=== PATIENT | male | born 1950 | race Caucasian/White ===

== ENCOUNTER 2018-03-09 19:32 | Inpatient (IN) | payer MEDICARE, MEDICAID ==
[~2018-03-09] VITALS: Ht 180.3 cm; Wt 76.6 kg
[~2018-03-09 19:32] MED LIST: BENZ2TAB10 PO; DIVA500T52 PO; FISH1CAP49 PO; LISI-661 PO; OLAN10TA22 PO; OMEP20 PO; RISP2TAB76 PO
[2018-03-09 20:28] LABS: BASOPHILS % (AUTO) 0.5 % (0.0-2.0); EOSINOPHILS % (AUTO) 3.5 % (1.0-6.0); HEMATOCRIT 40.9 % (41-53); HEMOGLOBIN 14.3 g/dL (13.5-17.5); LYMPHOCYTES # (AUTO) 2.6 K/uL (1.0-4.8); LYMPHOCYTES % (AUTO) 33.1 % (22.0-44.0); MEAN CORPUSCULAR HEMOGLOBIN 34.3 pg (26.0-34.0); MEAN CORPUSCULAR HGB CONC 34.9 G/dL (31.0-37.0); MEAN CORPUSCULAR VOLUME 98 fL (80-100); MONOCYTES # (AUTO) 0.8 K/uL (0.1-1.0); MONOCYTES % (AUTO) 10.7 % (2.0-9.0); NEUTROPHILS # (AUTO) 4.1 K/uL (1.8-7.7); NEUTROPHILS % (AUTO) 52.2 % (40.0-70.0); PLATELET COUNT (AUTO) 218 K/uL (150-450); RED BLOOD CELL COUNT(AUTO) 4.16 MIL/uL (4.50-5.90); RED CELL DISTRIBUTION WIDTH 13.5 % (11.5-14.5)
[2018-03-09 20:37] LABS: ANION GAP 8 mmol/L (8-16); CARBON DIOXIDE 29 mmol/L (22-29); CHLORIDE 104 mmol/L (98-107); CREATININE 1.17 mg/dL (0.60-1.30); GLOMERULAR FILTR. RATE CALC > 60 mL/min (>60); POTASSIUM 3.8 mmol/L (3.5-5.1); SODIUM SERUM 141 mmol/L (136-145); UREA NITROGEN, BLOOD 33 mg/dL (7-18)
[2018-03-09 20:39] LABS: GLUCOSE,POINT OF CARE 198 MG/DL (70-110)
[2018-03-09 20:44] LABS: ALANINE AMINOTRANSFERASE 16 U/L (12-78); ALBUMIN 3.5 g/dL (3.4-5.0); ALKALINE PHOSPHATASE 54 U/L (46-116); ASPARTATE AMINOTRANSFERASE 12 U/L (15-37); BILIRUBIN,TOTAL 0.5 mg/dL (0.1-1.0); TOTAL PROTEIN, SERUM 7.1 g/dL (6.4-8.2); VALPROIC ACID 23 mcg/mL (50-100)
[2018-03-09 20:49] LABS: GLUCOSE,RANDOM 182 mg/dL (70-110)
[2018-03-09] MEDS ORDERED: HALOPERIDOL 5 MG TABLET PO PRN (21:15)
[2018-03-09] MEDS ORDERED: AmLODIPine BESYLATE 5 MG TABLET PO ONE (21:15)
[2018-03-09] MEDS ORDERED: ZOLPIDEM TARTRATE 10 MG TABLET PO PRN (21:15)
[2018-03-09 21:36] LABS: HEMOGLOBIN A1C 5.6 % (4.5-6.2)
[2018-03-09 21:47] LABS: CHOL/HDL RATIO 4.3 (4.2-7.3); CHOLESTEROL 165 mg/dL (131-200); FREE T4 (FREE THYROXINE) 0.84 ng/dL (0.76-1.46); HDL CHOLESTEROL 38 mg/dL (40-60); LDL CHOL (CALC.) 91 mg/dL (0-130); THYROID STIMULATING HORMONE 1.41 uIU/mL (0.36-3.74); TRIGLYCERIDES 181 mg/dL (15-150)
[2018-03-09] MEDS: LORazepam 2 MG TABLET PO PRN (21:58)
[2018-03-10 01:10] VITALS: BP 137/87
[2018-03-10 10:15] VITALS: BP 136/92
[2018-03-10 21:50] VITALS: BP 138/79
[2018-03-10] MEDS ORDERED: ALBUTEROL SULFATE HFA 90 MCG/PUFF 8 GM INHALER IH PRN (22:15)
[2018-03-10] MEDS ORDERED: BENZOCAINE/MENTHOL LOZENGE MM PRN (22:15)
[2018-03-10] MEDS ORDERED: MAG HYDROX/AL HYDROX/SIMETH ES 30 ML SUSPENSION UDCUP PO PRN (22:15)
[2018-03-10] MEDS ORDERED: PETROLATUM,WHITE 71 GM JELLY TP PRN (22:15)
[2018-03-10] MEDS ORDERED: ACETAMINOPHEN 325 MG TABLET PO PRN (22:15)
[2018-03-10] MEDS ORDERED: BACITRACIN 28.4 GM OINTMENT TP PRN (22:15)
[2018-03-10] MEDS ORDERED: ONDANSETRON HCL 4 MG TABLET PO PRN (22:15)
[2018-03-10] MEDS ORDERED: LOPERAMIDE HCL 2 MG CAPSULE PO PRN (22:15)
[2018-03-10] MEDS ORDERED: MAGNESIUM HYDROXIDE SUSPENSION 30 ML UDCUP PO PRN (22:15)
[2018-03-10] MEDS ORDERED: CloNIDine HCL 0.1 MG TABLET PO PRN (22:15)
[2018-03-10] MEDS ORDERED: IBUPROFEN 600 MG TABLET PO PRN (22:15)
[2018-03-10] MEDS ORDERED: DEXTROSE 50%-WATER 25 GM/50 ML SYRINGE IVP PRN (23:00)
[2018-03-11] MEDS ORDERED: PNEUMOCOCCAL VACCINE POLYVALENT 0.5 ML VIAL [PPSV23] IM ONE (01:15)
[2018-03-11 06:24] LABS: GLUCOMETER DEV NAME(LOC) 3EI C; GLUCOSE,POINT OF CARE 96 MG/DL (70-110)
[2018-03-11 06:29] LABS: BAND NEUTROPHILS % (MANUAL) 0 % (0-5)
[2018-03-11 06:51] LABS: HEMATOCRIT 39.3 % (41-53); HEMOGLOBIN 13.6 g/dL (13.5-17.5); MEAN CORPUSCULAR HGB CONC 34.7 G/dL (31.0-37.0); MEAN CORPUSCULAR VOLUME 98 fL (80-100); PLATELET COUNT (AUTO) 226 K/uL (150-450); RED BLOOD CELL COUNT(AUTO) 4.01 MIL/uL (4.50-5.90); RED CELL DISTRIBUTION WIDTH 13.4 % (11.5-14.5)
[2018-03-11 07:14] LABS: ANION GAP 7 mmol/L (8-16); CALCIUM, TOTAL 8.8 mg/dL (8.8-10.5); CARBON DIOXIDE 27 mmol/L (22-29); CHLORIDE 104 mmol/L (98-107); CHOL/HDL RATIO 3.9 (4.2-7.3); CHOLESTEROL 155 mg/dL (131-200); CREATININE 0.91 mg/dL (0.60-1.30); GLOMERULAR FILTR. RATE CALC > 60 mL/min (>60); GLUCOSE,RANDOM 106 mg/dL (70-110); HDL CHOLESTEROL 40 mg/dL (40-60); LDL CHOL (CALC.) 87 mg/dL (0-130); PHOSPHORUS 3.5 mg/dL (2.5-4.9); SODIUM SERUM 138 mmol/L (136-145); THYROID STIMULATING HORMONE 4.97 uIU/mL (0.36-3.74); TRIGLYCERIDES 139 mg/dL (15-150); UREA NITROGEN, BLOOD 27 mg/dL (7-18)
[2018-03-11 07:26] LABS: HEMOGLOBIN A1C 5.7 % (4.5-6.2)
[2018-03-11] MEDS: OMEPRAZOLE 20 MG CAPSULE PO SCH (08:49)
[2018-03-11] MEDS: DOCUSATE SODIUM 100 MG CAPSULE PO SCH (08:49)
[2018-03-11] MEDS: LISINOPRIL 10 MG TABLET PO SCH (08:49)
[2018-03-11] MEDS: OMEGA-3/DHA/EPA/FISH OIL 1,000 MG CAPSULE PO SCH (08:49)
[2018-03-11] MEDS ORDERED: OMEGA-3/DHA/EPA/FISH OIL 1,000 MG CAPSULE PO SCH (09:00)
[2018-03-11 10:10] LABS: EOSINOPHILS % (MANUAL) 3 % (1-6); LYMPHOCYTES % (MANUAL) 43 % (22-44); MONOCYTES % (MANUAL) 4 % (2-9); SEGMENTED NEUTROPHILS % 50 % (40-70)
[2018-03-11 10:56] VITALS: BP 141/93
[2018-03-11 11:19] LABS: GLUCOMETER DEV NAME(LOC) 3EX 1; GLUCOSE,POINT OF CARE 90 MG/DL (70-110)
[2018-03-11] MEDS: LORazepam 2 MG TABLET PO PRN (16:27)
[2018-03-11 16:59] LABS: GLUCOMETER DEV NAME(LOC) 3EX 1; GLUCOSE,POINT OF CARE 114 MG/DL (70-110)
[2018-03-11 17:00] VITALS: BP 165/94
[2018-03-11] MEDS: DIVALPROEX SODIUM 500 MG DR TABLET PO SCH (20:17)
[2018-03-11 20:29] LABS: GLUCOMETER DEV NAME(LOC) 3EX 1; GLUCOSE,POINT OF CARE 117 MG/DL (70-110)
[2018-03-12 06:35] LABS: GLUCOMETER DEV NAME(LOC) 3EI C; GLUCOSE,POINT OF CARE 85 MG/DL (70-110)
[2018-03-12] MEDS: OMEGA-3/DHA/EPA/FISH OIL 1,000 MG CAPSULE PO SCH (08:26)
[2018-03-12] MEDS: DOCUSATE SODIUM 100 MG CAPSULE PO SCH (08:26)
[2018-03-12] MEDS: LISINOPRIL 10 MG TABLET PO SCH (08:26)
[2018-03-12] MEDS: OMEPRAZOLE 20 MG CAPSULE PO SCH (08:26)
[2018-03-12] MEDS: DIVALPROEX SODIUM 500 MG DR TABLET PO SCH ×2 (08:26→20:37)
[2018-03-12 08:45] VITALS: BP 144/92
[2018-03-12 11:28] LABS: GLUCOMETER DEV NAME(LOC) 3EX 1; GLUCOSE,POINT OF CARE 82 MG/DL (70-110)
[2018-03-12 19:55] VITALS: BP 148/98
[2018-03-12] MEDS: RisperiDONE 1 MG TABLET PO SCH (20:37)
[2018-03-12 22:48] LABS: GLUCOMETER DEV NAME(LOC) 3EX 1; GLUCOSE,POINT OF CARE 100 MG/DL (70-110)
[2018-03-13 05:39] LABS: GLUCOMETER DEV NAME(LOC) 3EI C; GLUCOSE,POINT OF CARE 157 MG/DL (70-110)
[2018-03-13 05:54] VITALS: BP 157/94
[2018-03-13 08:06] VITALS: BP 157/102
[2018-03-13] MEDS: DIVALPROEX SODIUM 500 MG DR TABLET PO SCH ×2 (08:19→21:00)
[2018-03-13] MEDS: LISINOPRIL 10 MG TABLET PO SCH (08:19)
[2018-03-13] MEDS: DOCUSATE SODIUM 100 MG CAPSULE PO SCH (08:19)
[2018-03-13] MEDS: OMEGA-3/DHA/EPA/FISH OIL 1,000 MG CAPSULE PO SCH (08:19)
[2018-03-13] MEDS: OMEPRAZOLE 20 MG CAPSULE PO SCH (08:19)
[2018-03-13 09:05] VITALS: BP 142/92
[2018-03-13 11:34] LABS: GLUCOMETER DEV NAME(LOC) 3EX 1; GLUCOSE,POINT OF CARE 98 MG/DL (70-110)
[2018-03-13 16:47] VITALS: BP 113/78
[2018-03-13] MEDS: RisperiDONE 1 MG TABLET PO SCH (21:00)
[2018-03-13 23:04] LABS: GLUCOMETER DEV NAME(LOC) 3EX 1; GLUCOSE,POINT OF CARE 101 MG/DL (70-110)
[2018-03-14 06:34] LABS: GLUCOMETER DEV NAME(LOC) 3EI C; GLUCOSE,POINT OF CARE 101 MG/DL (70-110)
[2018-03-14 08:04] VITALS: BP 156/74
[2018-03-14] MEDS: DIVALPROEX SODIUM 500 MG DR TABLET PO SCH ×2 (09:00→20:24)
[2018-03-14] MEDS: OMEGA-3/DHA/EPA/FISH OIL 1,000 MG CAPSULE PO SCH (09:00)
[2018-03-14] MEDS: DOCUSATE SODIUM 100 MG CAPSULE PO SCH (09:00)
[2018-03-14] MEDS: OMEPRAZOLE 20 MG CAPSULE PO SCH (09:00)
[2018-03-14] MEDS: LISINOPRIL 10 MG TABLET PO SCH (09:00)
[2018-03-14 11:18] LABS: GLUCOMETER DEV NAME(LOC) 3EX 1; GLUCOSE,POINT OF CARE 86 MG/DL (70-110)
[2018-03-14 16:29] VITALS: BP 149/101
[2018-03-14] MEDS: RisperiDONE 1 MG TABLET PO SCH (20:24)
[2018-03-14 21:23] LABS: GLUCOMETER DEV NAME(LOC) 3EX 1; GLUCOSE,POINT OF CARE 160 MG/DL (70-110)
[2018-03-14] MEDS: INSULIN LISPRO 100 UNITS/ML SQ PRN (21:28)
[2018-03-15 04:30] VITALS: BP 128/94
[2018-03-15 05:44] LABS: GLUCOMETER DEV NAME(LOC) 3EI C; GLUCOSE,POINT OF CARE 98 MG/DL (70-110)
[2018-03-15 08:06] VITALS: BP 153/90
[2018-03-15] MEDS: OMEPRAZOLE 20 MG CAPSULE PO SCH (10:15)
[2018-03-15] MEDS: LISINOPRIL 10 MG TABLET PO SCH (10:15)
[2018-03-15] MEDS: OMEGA-3/DHA/EPA/FISH OIL 1,000 MG CAPSULE PO SCH (10:15)
[2018-03-15] MEDS: DOCUSATE SODIUM 100 MG CAPSULE PO SCH (10:15)
[2018-03-15] MEDS: DIVALPROEX SODIUM 500 MG DR TABLET PO SCH ×2 (10:15→20:10)
[2018-03-15 11:18] LABS: GLUCOMETER DEV NAME(LOC) 3EX 1; GLUCOSE,POINT OF CARE 75 MG/DL (70-110)
[2018-03-15 17:14] LABS: GLUCOMETER DEV NAME(LOC) 3EX 1; GLUCOSE,POINT OF CARE 117 MG/DL (70-110)
[2018-03-15 19:53] VITALS: BP 127/89
[2018-03-15] MEDS: RisperiDONE 1 MG TABLET PO SCH (20:10)
[2018-03-16 00:05] VITALS: BP 143/95
[2018-03-16 05:54] LABS: GLUCOMETER DEV NAME(LOC) 3EI C; GLUCOSE,POINT OF CARE 115 MG/DL (70-110)
[2018-03-16 08:05] VITALS: BP 147/80
[2018-03-16] MEDS: LORazepam 2 MG TABLET PO PRN (09:03)
[2018-03-16] MEDS: OMEGA-3/DHA/EPA/FISH OIL 1,000 MG CAPSULE PO SCH (09:05)
[2018-03-16] MEDS: DOCUSATE SODIUM 100 MG CAPSULE PO SCH (09:05)
[2018-03-16] MEDS: DIVALPROEX SODIUM 500 MG DR TABLET PO SCH ×2 (09:05→20:25)
[2018-03-16] MEDS: OMEPRAZOLE 20 MG CAPSULE PO SCH (09:05)
[2018-03-16] MEDS: LISINOPRIL 10 MG TABLET PO SCH (09:06)
[2018-03-16] MEDS ORDERED: HALOPERIDOL LACTATE 5 MG/ML VIAL IM ONE (09:30)
[2018-03-16] MEDS ORDERED: DiphenhydrAMINE HCL 50 MG/ML VIAL ONE (09:36)
[2018-03-16] MEDS ORDERED: HALOPERIDOL LACTATE 5 MG/ML VIAL ONE (09:36)
[2018-03-16] MEDS ORDERED: DiphenhydrAMINE HCL 50 MG/ML VIAL IM ONE (09:45)
[2018-03-16 11:08] LABS: GLUCOMETER DEV NAME(LOC) 3EX 1; GLUCOSE,POINT OF CARE 96 MG/DL (70-110)
[2018-03-16 17:04] LABS: GLUCOMETER DEV NAME(LOC) 3EX 1; GLUCOSE,POINT OF CARE 93 MG/DL (70-110)
[2018-03-16 19:09] VITALS: BP 121/67
[2018-03-16] MEDS: RisperiDONE 1 MG TABLET PO SCH (20:25)
[2018-03-16 20:49] LABS: GLUCOMETER DEV NAME(LOC) 3EX 1; GLUCOSE,POINT OF CARE 119 MG/DL (70-110)
[2018-03-17 05:20] VITALS: BP 120/77
[2018-03-17 05:44] LABS: GLUCOMETER DEV NAME(LOC) 3EI C; GLUCOSE,POINT OF CARE 97 MG/DL (70-110)
[2018-03-17 08:30] VITALS: BP 131/92
[2018-03-17] MEDS: OMEPRAZOLE 20 MG CAPSULE PO SCH (09:10)
[2018-03-17] MEDS: OMEGA-3/DHA/EPA/FISH OIL 1,000 MG CAPSULE PO SCH (09:10)
[2018-03-17] MEDS: DIVALPROEX SODIUM 500 MG DR TABLET PO SCH ×2 (09:10→20:29)
[2018-03-17] MEDS: LISINOPRIL 10 MG TABLET PO SCH (09:10)
[2018-03-17] MEDS: DOCUSATE SODIUM 100 MG CAPSULE PO SCH (09:10)
[2018-03-17 11:44] LABS: GLUCOMETER DEV NAME(LOC) 3EX 1; GLUCOSE,POINT OF CARE 99 MG/DL (70-110)
[2018-03-17 13:30] VITALS: BP 117/82
[2018-03-17 16:47] VITALS: BP 130/92
[2018-03-17 19:08] LABS: GLUCOMETER DEV NAME(LOC) 3EX 1; GLUCOSE,POINT OF CARE 99 MG/DL (70-110)
[2018-03-17] MEDS: RisperiDONE 1 MG TABLET PO SCH (20:29)
[2018-03-17 20:33] LABS: GLUCOMETER DEV NAME(LOC) 3EX 1; GLUCOSE,POINT OF CARE 166 MG/DL (70-110)
[2018-03-18 06:19] LABS: GLUCOMETER DEV NAME(LOC) 3EI C; GLUCOSE,POINT OF CARE 91 MG/DL (70-110)
[2018-03-18 08:08] VITALS: BP 153/63
[2018-03-18] MEDS: OMEGA-3/DHA/EPA/FISH OIL 1,000 MG CAPSULE PO SCH (08:21)
[2018-03-18] MEDS: OMEPRAZOLE 20 MG CAPSULE PO SCH (08:21)
[2018-03-18] MEDS: RisperiDONE 1 MG TABLET PO SCH ×2 (08:21→20:27)
[2018-03-18] MEDS: DIVALPROEX SODIUM 500 MG DR TABLET PO SCH ×2 (08:22→20:27)
[2018-03-18] MEDS: LISINOPRIL 10 MG TABLET PO SCH (08:22)
[2018-03-18] MEDS: DOCUSATE SODIUM 100 MG CAPSULE PO SCH (08:22)
[2018-03-18 11:18] LABS: GLUCOMETER DEV NAME(LOC) 3EX 1; GLUCOSE,POINT OF CARE 91 MG/DL (70-110)
[2018-03-18 19:03] VITALS: BP 137/79
[2018-03-19 05:34] LABS: GLUCOMETER DEV NAME(LOC) 3EI C; GLUCOSE,POINT OF CARE 99 MG/DL (70-110)
[2018-03-19 08:15] VITALS: BP 125/75
[2018-03-19] MEDS: RisperiDONE 1 MG TABLET PO SCH ×2 (08:29→20:37)
[2018-03-19] MEDS: OMEPRAZOLE 20 MG CAPSULE PO SCH (08:29)
[2018-03-19] MEDS: DOCUSATE SODIUM 100 MG CAPSULE PO SCH (08:29)
[2018-03-19] MEDS: LISINOPRIL 10 MG TABLET PO SCH (08:29)
[2018-03-19] MEDS: DIVALPROEX SODIUM 500 MG DR TABLET PO SCH ×2 (08:30→20:37)
[2018-03-19] MEDS: OMEGA-3/DHA/EPA/FISH OIL 1,000 MG CAPSULE PO SCH (08:30)
[2018-03-19 11:18] LABS: GLUCOMETER DEV NAME(LOC) 3EX 1; GLUCOSE,POINT OF CARE 101 MG/DL (70-110)
[2018-03-19 16:46] VITALS: BP 124/68
[2018-03-19 20:38] LABS: GLUCOMETER DEV NAME(LOC) 3EX 1; GLUCOSE,POINT OF CARE 132 MG/DL (70-110)
[2018-03-20 05:39] LABS: GLUCOMETER DEV NAME(LOC) 3EI C; GLUCOSE,POINT OF CARE 86 MG/DL (70-110)
[2018-03-20 08:00] VITALS: BP 134/83
[2018-03-20] MEDS: DIVALPROEX SODIUM 500 MG DR TABLET PO SCH ×2 (08:31→20:14)
[2018-03-20] MEDS: OMEPRAZOLE 20 MG CAPSULE PO SCH (08:31)
[2018-03-20] MEDS: LISINOPRIL 10 MG TABLET PO SCH (08:31)
[2018-03-20] MEDS: OMEGA-3/DHA/EPA/FISH OIL 1,000 MG CAPSULE PO SCH (08:31)
[2018-03-20] MEDS: RisperiDONE 1 MG TABLET PO SCH ×2 (08:31→20:14)
[2018-03-20] MEDS: DOCUSATE SODIUM 100 MG CAPSULE PO SCH (08:31)
[2018-03-20] MEDS: INSULIN LISPRO 100 UNITS/ML SQ PRN (11:41)
[2018-03-20 11:48] LABS: GLUCOMETER DEV NAME(LOC) 3EX 1; GLUCOSE,POINT OF CARE 135 MG/DL (70-110)
[2018-03-20 18:49] VITALS: BP 128/90
[2018-03-21 06:29] LABS: GLUCOMETER DEV NAME(LOC) 3EI C; GLUCOSE,POINT OF CARE 85 MG/DL (70-110)
[2018-03-21 08:05] VITALS: BP 113/76
[2018-03-21] MEDS: OMEGA-3/DHA/EPA/FISH OIL 1,000 MG CAPSULE PO SCH (09:31)
[2018-03-21] MEDS: OMEPRAZOLE 20 MG CAPSULE PO SCH (09:31)
[2018-03-21] MEDS: DOCUSATE SODIUM 100 MG CAPSULE PO SCH (09:31)
[2018-03-21] MEDS: RisperiDONE 1 MG TABLET PO SCH ×2 (09:31→19:55)
[2018-03-21] MEDS: DIVALPROEX SODIUM 500 MG DR TABLET PO SCH ×2 (09:31→19:55)
[2018-03-21] MEDS: LISINOPRIL 10 MG TABLET PO SCH (09:31)
[2018-03-21 11:18] LABS: GLUCOMETER DEV NAME(LOC) 3EX 1; GLUCOSE,POINT OF CARE 125 MG/DL (70-110)
[2018-03-21 17:00] VITALS: BP 110/73
[2018-03-21 17:24] LABS: GLUCOMETER DEV NAME(LOC) 3EX 1; GLUCOSE,POINT OF CARE 112 MG/DL (70-110)
[2018-03-21 21:33] LABS: GLUCOMETER DEV NAME(LOC) 3EX 1; GLUCOSE,POINT OF CARE 122 MG/DL (70-110)
[2018-03-22 05:29] LABS: GLUCOMETER DEV NAME(LOC) 3EI C; GLUCOSE,POINT OF CARE 83 MG/DL (70-110)
[2018-03-22 08:15] VITALS: BP 151/88
[2018-03-22] MEDS: LISINOPRIL 10 MG TABLET PO SCH (08:24)
[2018-03-22] MEDS: OMEPRAZOLE 20 MG CAPSULE PO SCH (08:24)
[2018-03-22] MEDS: DIVALPROEX SODIUM 500 MG DR TABLET PO SCH ×2 (08:27→20:31)
[2018-03-22] MEDS: OMEGA-3/DHA/EPA/FISH OIL 1,000 MG CAPSULE PO SCH (08:28)
[2018-03-22] MEDS: DOCUSATE SODIUM 100 MG CAPSULE PO SCH (08:28)
[2018-03-22] MEDS: RisperiDONE 1 MG TABLET PO SCH ×2 (08:28→20:31)
[2018-03-22] MEDS ORDERED: TUBERCULIN, PURIFIED PROTEIN DERIVATIVE 5 TU/0.1 ML SYG ID ONE (10:30)
[2018-03-22 11:34] LABS: GLUCOMETER DEV NAME(LOC) 3EX 1; GLUCOSE,POINT OF CARE 84 MG/DL (70-110)
[2018-03-22 16:15] VITALS: BP 156/95
[2018-03-22 16:54] LABS: GLUCOMETER DEV NAME(LOC) 3EX 1; GLUCOSE,POINT OF CARE 116 MG/DL (70-110)
[2018-03-22 20:33] LABS: GLUCOMETER DEV NAME(LOC) 3EX 1; GLUCOSE,POINT OF CARE 99 MG/DL (70-110)
[2018-03-23 05:30] LABS: GLUCOMETER DEV NAME(LOC) 3EI C; GLUCOSE,POINT OF CARE 93 MG/DL (70-110)
[2018-03-23] MEDS: DOCUSATE SODIUM 100 MG CAPSULE PO SCH (08:51)
[2018-03-23] MEDS: DIVALPROEX SODIUM 500 MG DR TABLET PO SCH ×2 (08:51→20:06)
[2018-03-23] MEDS: OMEGA-3/DHA/EPA/FISH OIL 1,000 MG CAPSULE PO SCH (08:51)
[2018-03-23] MEDS: OMEPRAZOLE 20 MG CAPSULE PO SCH (08:51)
[2018-03-23] MEDS: RisperiDONE 1 MG TABLET PO SCH ×2 (08:52→20:06)
[2018-03-23] MEDS: LISINOPRIL 10 MG TABLET PO SCH (08:52)
[2018-03-23 09:29] VITALS: BP 123/86
[2018-03-23 11:24] LABS: GLUCOMETER DEV NAME(LOC) 3EX 1; GLUCOSE,POINT OF CARE 93 MG/DL (70-110)
[2018-03-23 16:29] LABS: GLUCOMETER DEV NAME(LOC) 3EX 1; GLUCOSE,POINT OF CARE 110 MG/DL (70-110)
[2018-03-23 16:38] VITALS: BP 118/75
[2018-03-23 20:19] LABS: GLUCOMETER DEV NAME(LOC) 3EX 1; GLUCOSE,POINT OF CARE 133 MG/DL (70-110)
[2018-03-24 00:40] VITALS: BP 131/91
[2018-03-24 05:30] LABS: GLUCOMETER DEV NAME(LOC) 3EI C; GLUCOSE,POINT OF CARE 88 MG/DL (70-110)
[2018-03-24] MEDS: DIVALPROEX SODIUM 500 MG DR TABLET PO SCH (08:34)
[2018-03-24] MEDS: DOCUSATE SODIUM 100 MG CAPSULE PO SCH (08:34)
[2018-03-24] MEDS: RisperiDONE 1 MG TABLET PO SCH (08:34)
[2018-03-24] MEDS: OMEPRAZOLE 20 MG CAPSULE PO SCH (08:35)
[2018-03-24] MEDS: LISINOPRIL 10 MG TABLET PO SCH (08:35)
[2018-03-24] MEDS: OMEGA-3/DHA/EPA/FISH OIL 1,000 MG CAPSULE PO SCH (08:35)
[2018-03-24 08:50] VITALS: BP 154/98
[2018-03-24] MEDS ORDERED: DIVA-78 PO ×2 (09:25)
[2018-03-24] MEDS ORDERED: RISP1 PO (09:25)
[2018-03-24] MEDS ORDERED: DSS100 PO (10:18)
[2018-03-24 11:09] LABS: GLUCOMETER DEV NAME(LOC) 3EX 1; GLUCOSE,POINT OF CARE 117 MG/DL (70-110)
[2018-03-24 12:50] VITALS: BP 98/68
== END 2018-03-24 13:31 | DRG 885 ==
LOC: EMS 19:35 → 3EX 23:30
DX: F20.0 Paranoid schizophrenia (principal); Z28.21 Immunization not carried out because of patient refusal; F17.210 Nicotine dependence, cigarettes, uncomplicated; E11.65 Type 2 diabetes mellitus with hyperglycemia; E78.1 Pure hyperglyceridemia; I10 Essential (primary) hypertension; J44.9 Chronic obstructive pulmonary disease, unspecified; K21.9 Gastro-esophageal reflux disease without esophagitis; N28.9 Disorder of kidney and ureter, unspecified; R41.82 Altered mental status, unspecified; Z56.0 Unemployment, unspecified; Z71.6 Tobacco abuse counseling
CPT/HCPCS: 82306; 83036; 83735; 84100; 84439; 84443; 85007; 90471; 99285; G0480; J1200; J1630